=== PATIENT | male | born 1935 | race African-American/Black ===

== ENCOUNTER 2016-05-13 13:03 | Emergency (ER) | payer BC, MEDICARE, OTHER ==
[~2016-05-13] VITALS: Ht 177.8 cm; Wt 90.0 kg
[~2016-05-13 13:03] MED LIST: CALC0.5C4 PO; CLOP75TA27 PO; GLIP2.5T14 PO; LEVO25TA50 PO; NEPH PO; SEVE800T7 PO
[2016-05-13 13:09] VITALS: Ht 177.8 cm; Wt 90.0 kg
--- NOTE | 2016-05-13 15:21 | ERA ---
ER Documentation Chief Complaint Date/Time DATE: 05/13/16 TIME: 15:20 Chief Complaint UPPER BACK PAIN, COUGH CONGESTION DIALYSIS PT UNABLE TO SLEEP X2 DAYS HPI The patient is a 80-year-old male, presenting to the ER because of about back pain due to coughing for the last week. He has been getting over a cold, complains of intermittent dry cough for the last 2 weeks. The back pain is worse with coughing. He denies fever, chills, neck pain, chest pain, dyspnea, abdominal pain, vomiting, dysuria, diarrhea. He does not smoke, drink Past medical history: Chronic kidney disease on peritoneal dialysis, hypothyroidism, diabetes mellitus, anemia Past surgical history: Appendectomy, cardiac angiogram, peritoneal dialysis catheter ROS All systems reviewed and are negative except as per history of present illness. Medications Home Meds Active Scripts Dextromethorphan Hb-Promethazine Hcl (Promethazine DM Syrup) 473 Ml Syrup, 10 ML PO Q6H Y for COUGH, #4 OZ Prov:CAMELIA TOBIAS MD 05/13/16 Hydrocodone/Acetaminophen ([place] 5-325 Tablet) 1 Each Tablet, 1 TAB PO Q6H Y for PAIN, #7 TAB Prov:CAMELIA TOBIAS MD 05/13/16 Azithromycin* (Zithromax*) 250 Mg Tablet, 250 MG PO .JOJO DIRECTED, #6 TAB TAKE 500 MG (2 TABS) THE FIRST DAY THEN 250 MG (1 TAB) DAYS 2-5 Prov:CAMELIA TOBIAS MD 05/13/16 Reported Medications [Magnesium ] No Conflict Check, 250 MG PO DAILY 05/13/16 Aspirin* (Aspirin* EC) 81 Mg Tablet.dr, 81 MG PO DAILY, TAB 05/13/16 Metoprolol Tartrate* (Lopressor*) 25 Mg Tab, 25 MG PO BID, #60 TAB 05/13/16 Docusate Sodium* (Docusate Sodium*) 100 Mg Capsule, 100 MG PO BID, #60 CAP 05/13/16 Ferrous Sulfate* (Ferrous Sulfate*) 325 Mg Tabec, 325 MG PO DAILY, TAB 05/13/16 [place]-3 Fatty Acids/Fish Oil (Fish Oil 1,000 mg Capsule) 1 Each Capsule, 1 EACH PO DAILY, CAP 05/13/16 Levothyroxine Sodium* (Levoxyl*) 25 Mcg Tablet, 25 MCG PO BEFORE BREAKFAST, #30 TAB 07/06/15 Sevelamer Carbonate* (Renvela*) 800 Mg Tablet, 0.8 GM PO WITH MEALS, TAB 07/06/15 Clopidogrel Bisulfate (Clopidogrel) 75 Mg Tablet, 75 MG PO DAILY, #30 TAB 07/06/15 Discontinued Reported Medications Multivit/Ca Carb/B Cmplx/Fa* (Shaina-Sue*) 1 Tab Tab, 1 TAB PO DAILY, TAB 07/06/15 Calcitriol* (Calcitriol*) 0.5 Mcg Capsule, 0.5 MCG PO DAILY, CAP 07/06/15 Glipizide XL* (Glipizide XL*) 2.5 Mg Tab.er.24, 2.5 MG PO EVERY OTHER DAY, TAB 07/06/15 Allergies Allergies: Coded Allergies: penicillin (Verified Allergy, Unknown, 05/13/16) PMhx/Soc History of Surgery: Yes (APPENDICITIS ) Anesthesia Reaction: No Hx Substance Use: No Hx Tobacco Use: No Physical Exam Vitals Vital Signs Date Time Temp Pulse Resp B/P Pulse Ox O2 Delivery O2 Flow Rate FiO2 05/13/16 13:09 97.9 76 20 143/90 99 Physical Exam Const: No acute distress. Head: Atraumatic. Eyes: Normal Conjunctiva. ENT: Normal External Ears, Nose and Mouth. Neck: Full range of motion. No meningismus. Resp: Clear to auscultation bilaterally. Cardio: Regular rate and rhythm, no murmurs. Abd: Soft, non distended, normal bowel sounds, non tender. Skin: No petechiae or rashes. Back: No midline or flank tenderness. Ext: No cyanosis, or edema. Neur: Awake and alert. No focal deficit Psych: Normal Mood and Affect. Result Diagram: 05/13/16 1551 05/13/16 1551 Results 24 hrs Laboratory Tests Test 05/13/16 15:51 Anion Gap 17 Basophils # 0.010^3/ul Basophils % 0.7% Blood Morphology Comment Blood Urea Nitrogen 58mg/dl Calcium Level 6.8mg/dl Carbon Dioxide Level 31mmol/L Chloride Level 97mmol/L Creatinine 10.78mg/dl Eosinophils # 0.210^3/ul Eosinophils % 2.3% Glucose Level 112mg/dl Hematocrit 32.8% Hemoglobin 11.1g/dl Lymphocytes # 1.910^3/ul Lymphocytes % 25.8% Mean Corpuscular Hemoglobin 29.7pg Mean Corpuscular Hemoglobin Concent 33.9g/dl Mean Corpuscular Volume 87.5fl Mean Platelet Volume 8.3fl Monocytes # 0.410^3/ul Monocytes % 5.9% Neutrophils # 4.810^3/ul Neutrophils % 65.3% Nucleated Red Blood Cells # 0.010^3/ul Nucleated Red Blood Cells % 0.0/100WBC Platelet Count 03445^3/UL Potassium Level 3.7mmol/L Red Blood Count 3.7510^6/ul Red Cell Distribution Width 15.6% Sodium Level 141mmol/L White Blood Count 7.410^3/ul Current Medications Medications (Trade) Dose Ordered Sig/Neeta Route PRN Reason Start Time Stop Time Status Last Admin Dose Admin Acetaminophen/ Hydrocodone Bitart ([place] ()) 1 tab ONCE ONCE PO 05/13/16 16:00 05/13/16 16:01 DC 05/13/16 16:00 Ondansetron HCl (Zofran Odt) 4 mg ONCE STAT ODT 05/13/16 15:31 05/13/16 15:34 DC 05/13/16 16:00 Procedures/[place] [address] Radiology Main Line: [phone] DIAGNOSTIC IMAGING REPORT Patient: MELVIN PARK : 1935 Age: 80 Sex: M MR #: [id number] DOS: 05/13/16 1531 Ordering MD: CAMELIA TOBIAS MD Location: E/R Room/Bed: PROCEDURE: XR Chest. CLINICAL INDICATION: Chest pain TECHNIQUE: Single frontal view of the chest was obtained. COMPARISON: 07/06/2015 FINDINGS: The heart is within normal limits. The thoracic aorta is calcified. The lungs are clear. There is no pleural effusion or pneumothorax. Again seen is a cardiac monitoring device overlying the left mid chest. RPTAT: AA IMPRESSION: No acute disease. Calcified aorta consistent with atherosclerotic disease. .Sagar Ponce MD, Date Time Electronically viewed and signed by .Sagar Ponce MD, MD on 05/13/2016 15: 58 .S/ CC: CAMELIA TOBIAS MD MEDICAL MAKING DECISION: The patient is a 80-year-old male, presenting with acute bronchitis, acute upper back pain most likely due to persistent dry cough. He was treated with Quincy 10 million p.o. for pain and Zofran ODT for nausea with good response. The differential diagnoses considered include but are not limited to acute coronary syndrome, acute myocardial infarction, pericarditis, pulmonary embolism, aortic dissection, pneumonia, pleural effusion , pneumothorax, GERD, chest wall pain. Departure Diagnosis: Primary Impression: Back pain Additional Impressions: Bronchitis Anemia Condition: Stable Comments He was discharged with Zithromax, Quincy, promethazine with dextromethorphan I discussed the findings with the patient. I advised the patient to follow-up with the primary physician in about 1-2 days, sooner if needed and return if any concern. The patient's blood pressure was elevated (>120/80) but appears stable without evidence of hypertension emergency or urgency. The patient was counseled about the risks of hypertension and urged to pursue outpatient monitoring and therapy within a week with their primary care physician. CAMELIA TOBIAS MD May 13, 2016 15:21
[2016-05-13] MEDS ORDERED: ONDANSETRON (ODT) 4 MG TAB ODT STA (15:31)
--- NOTE | 2016-05-13 15:58 | RADRPT ---
PROCEDURE: XR Chest. CLINICAL INDICATION: Chest pain TECHNIQUE: Single frontal view of the chest was obtained. COMPARISON: 07/06/2015 FINDINGS: The heart is within normal limits. The thoracic aorta is calcified. The lungs are clear. There is no pleural effusion or pneumothorax. Again seen is a cardiac monitoring device overlying the left mid chest. RPTAT: AA IMPRESSION: No acute disease. Calcified aorta consistent with atherosclerotic disease. .Sagar Ponce MD, MD Date Time Electronically viewed and signed by .Sgaar Ponce MD, on 05/13/2016 15:58 .S/
[2016-05-13] MEDS ORDERED: HYDROCODONE/APAP (10/325) TAB PO ONE (16:00)
[2016-05-13] MEDS ORDERED: FER325 PO (16:22)
[2016-05-13] MEDS ORDERED: OMEG-135 PO (16:22)
[2016-05-13] MEDS ORDERED: METO-448 PO (16:23)
[2016-05-13] MEDS ORDERED: ASPI-664 PO (16:23)
[2016-05-13] MEDS ORDERED: DOCU-159 PO (16:23)
[2016-05-13] MEDS ORDERED: MAGNESIUM PO (16:30)
[2016-05-13 16:33] LABS: POTASSIUM 3.7 mmol/L (3.5-5.1)
[2016-05-13 16:35] LABS: CREATININE 10.78 mg/dl (0.61-1.24)
[2016-05-13 16:36] LABS: CALCIUM 6.8 mg/dl (8.4-10.2)
[2016-05-13 16:42] LABS: BASOPHILS % 0.7 % (0.0-2.0); EOSINOPHILS # 0.2 10^3/ul (0.0-0.5); EOSINOPHILS % 2.3 % (0.0-7.0); HEMATOCRIT 32.8 % (42.0-52.0); HEMOGLOBIN 11.1 g/dl (14.0-18.0); LYMPHOCYTES # 1.9 10^3/ul (0.8-2.9); LYMPHOCYTES % 25.8 % (15.0-51.0); MEAN CORPUSCULAR HEMOGLOBIN 29.7 pg (29.0-33.0); MEAN CORPUSCULAR HGB CONC 33.9 g/dl (32.0-37.0); MEAN CORPUSCULAR VOLUME 87.5 fl (82.0-101.0); MEAN PLATELET VOLUME 8.3 fl (7.4-10.4); MONOCYTE # 0.4 10^3/ul (0.3-0.9); MONOCYTES % 5.9 % (0.0-11.0); NEUTROPHIL # 4.8 10^3/ul (1.6-7.5); NEUTROPHILS % 65.3 % (39.0-77.0); PLATELET COUNT 203 10^3/UL (140-440); RED BLOOD COUNT 3.75 10^6/ul (4.70-6.10); RED CELL DISTRIBUTION WIDTH 15.6 % (11.5-14.5); UNCORRECTED WBC 7.4 10^3/ul (4.8-10.8); WHITE BLOOD COUNT 7.4 10^3/ul (4.8-10.8)
[2016-05-13 16:43] LABS: CONDITION 1; LH ANALYZER COMMENTS 1
[2016-05-13] MEDS ORDERED: HYDR-906 PO (17:10)
[2016-05-13] MEDS ORDERED: AZIT250T94 PO (17:10)
[2016-05-13] MEDS ORDERED: D-ME473S18 PO (17:10)
[2016-05-13 18:07] VITALS: BP 125/79; PULSE 77; RESP 19; TEMP 98.6
== END 2016-05-13 18:07 | disposition home or self-care (01) ==
LOC: E/R 13:03
DX: M54.6 Pain in thoracic spine (principal); J20.9 Acute bronchitis, unspecified; D64.9 Anemia, unspecified; E11.9 Type 2 diabetes mellitus without complications; E03.9 Hypothyroidism, unspecified; N18.9 Chronic kidney disease, unspecified; Z79.82 Long term (current) use of aspirin; Z79.84 Long term (current) use of oral hypoglycemic drugs; Z99.2 Dependence on renal dialysis
CPT/HCPCS: 71010; 80048; 85025; 93005

== ENCOUNTER 2016-12-02 19:29 | Emergency (ER) | payer BC, MEDICARE, OTHER ==
[~2016-12-02] VITALS: Ht 182.9 cm; Wt 89.0 kg
[~2016-12-02 19:29] MED LIST changes: +ASPI-664 PO; +AZIT250T94 PO; -CALC0.5C4 PO; +D-ME473S18 PO; +DOCU-159 PO; +FER325 PO; -GLIP2.5T14 PO; +HYDR-906 PO; +MAGNESIUM PO; +METO-448 PO; -NEPH PO; +OMEG-135 PO
[2016-12-02 19:32] VITALS: Ht 182.9 cm; Wt 89.0 kg
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
[2016-12-02] MEDS ORDERED: traMADol 50 MG TAB PO ONE (22:00)
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
[2016-12-02 23:14] LABS: BASOPHIL # 0.1 10^3/ul (0.0-0.1); BASOPHILS % 0.7 % (0.0-2.0); EOSINOPHILS # 0.2 10^3/ul (0.0-0.5); EOSINOPHILS % 3.3 % (0.0-7.0); HEMATOCRIT 32.9 % (42.0-52.0); HEMOGLOBIN 10.9 g/dl (14.0-18.0); LYMPHOCYTES # 2.3 10^3/ul (0.8-2.9); LYMPHOCYTES % 32.4 % (15.0-51.0); MEAN CORPUSCULAR HEMOGLOBIN 30.4 pg (29.0-33.0); MEAN CORPUSCULAR HGB CONC 33.1 g/dl (32.0-37.0); MEAN CORPUSCULAR VOLUME 91.6 fl (82.0-101.0); MEAN PLATELET VOLUME 10.2 fl (7.4-10.4); MONOCYTE # 0.5 10^3/ul (0.3-0.9); MONOCYTES % 7.6 % (0.0-11.0); NEUTROPHIL # 3.9 10^3/ul (1.6-7.5); NEUTROPHILS % 55.7 % (39.0-77.0); PLATELET COUNT 171 10^3/UL (140-415); RED BLOOD COUNT 3.59 10^6/ul (4.70-6.10); WHITE BLOOD COUNT 6.9 10^3/ul (4.8-10.8)
[2016-12-02 23:28] LABS: POTASSIUM 3.6 mmol/L (3.5-5.1); TOTAL PROTEIN 7.5 g/dl (6.1-8.1)
[2016-12-02 23:29] LABS: ALBUMIN 3.7 g/dl (3.3-4.9); ALBUMIN/GLOBULIN RATIO 0.97
[2016-12-02 23:41] LABS: INR 0.95; PROTIME 12.7 Sec (12.2-14.2)
[2016-12-02 23:48] LABS: CREATININE 14.51 mg/dl (0.61-1.24)
[2016-12-03] MEDS ORDERED: ONDANSETRON 4 MG INJ IV STA ×2 (00:07→00:09)
[2016-12-03] MEDS ORDERED: morphine 4 MG/ML VIAL IV STA ×2 (00:07→00:09)
[2016-12-03] MEDS ORDERED: IOHEXOL 300MG/ML 150 ML BTL ONE (00:21)
[2016-12-03] MEDS ORDERED: SOD CHLORIDE 0.9% 100 ML ONE (00:21)
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
--- NOTE | 2016-12-03 01:58 | EN ---
Date/Time of Note Date/Time of Note DATE: 12/03/16 TIME: 01:58 ER Progress Note Patient was supported here from ER 2. Further workup shows pneumoperitoneum on CT scan. Discussed with radiologist. Likely secondary to peritoneal dialysis patient performs nightly. At this point patient has serial negative abdominal exams and no signs of deterioration despite prolonged observation. Patient will be discharged home. Follow-up in 8 hours. Follow-up sooner for any return of abdominal pain. BETSY ORTEGA Dec 03, 2016 01:58
[2016-12-03] MEDS ORDERED: HYDR-902 PO (01:59)
[2016-12-03 02:12] VITALS: BP 104/70; PULSE 78; RESP 18
== END 2016-12-03 02:19 | disposition home or self-care (01) ==
LOC: E/R 19:29
DX: K63.1 Perforation of intestine (nontraumatic) (principal); S20.211A Contusion of right front wall of thorax, initial encounter; S70.02XA Contusion of left hip, initial encounter; S29.9XXA Unspecified injury of thorax, initial encounter; V89.2XXA Person injured in unspecified motor-vehicle accident, traffic, initial encounter; Z79.82 Long term (current) use of aspirin
CPT/HCPCS: 36415; 71020; 71100; 72125; 72128; 73510; 74177; 80053; 83605; 85025; 85610; 96374; 96375; 99285; J2270; J2405; Q9967

== ENCOUNTER 2017-01-26 14:45 | Emergency (ER) | payer OTHER ==
[~2017-01-26] VITALS: Ht 177.8 cm; Wt 175.0 kg
[~2017-01-26 14:45] MED LIST changes: -D-ME473S18 PO; +HYDR-902 PO; -HYDR-906 PO
[2017-01-26] MEDS ORDERED: SOD CHLORIDE 0.9% 1,000 ML IV STA (14:48)
[2017-01-26 14:50] VITALS: Ht 177.8 cm; Wt 175.0 kg
[2017-01-26 15:13] LABS: BASOPHILS % 0.5 % (0.0-2.0); EOSINOPHILS # 0.2 10^3/ul (0.0-0.5); EOSINOPHILS % 3.1 % (0.0-7.0); HEMATOCRIT 37.1 % (42.0-52.0); HEMOGLOBIN 11.7 g/dl (14.0-18.0); LYMPHOCYTES # 1.8 10^3/ul (0.8-2.9); LYMPHOCYTES % 31.3 % (15.0-51.0); MEAN CORPUSCULAR HEMOGLOBIN 28.8 pg (29.0-33.0); MEAN CORPUSCULAR HGB CONC 31.5 g/dl (32.0-37.0); MEAN CORPUSCULAR VOLUME 91.4 fl (82.0-101.0); MEAN PLATELET VOLUME 10.3 fl (7.4-10.4); MONOCYTE # 0.4 10^3/ul (0.3-0.9); MONOCYTES % 7.7 % (0.0-11.0); NEUTROPHIL # 3.3 10^3/ul (1.6-7.5); NEUTROPHILS % 57.1 % (39.0-77.0); PLATELET COUNT 180 10^3/UL (140-415); RED BLOOD COUNT 4.06 10^6/ul (4.70-6.10); RED CELL DISTRIBUTION WIDTH 14.8 % (11.5-14.5); WHITE BLOOD COUNT 5.8 10^3/ul (4.8-10.8)
[2017-01-26 15:40] LABS: TROPONIN-I 0.053 ng/ml (0.00-0.12)
[2017-01-26 15:41] LABS: CREATININE 12.49 mg/dl (0.61-1.24)
[2017-01-26 15:51] LABS: POTASSIUM 2.8 mmol/L (3.5-5.1)
[2017-01-26] MEDS ORDERED: POTASSIUM CHLORIDE (SR) 20 MEQ TAB PO STA (16:42)
[2017-01-26] MEDS ORDERED: POTA10TA37 PO (16:45)
--- NOTE | 2017-01-26 16:50 | ERD ---
ER Documentation Chief Complaint Date/Time DATE: 01/26/17 TIME: 16:45 Chief Complaint weakness after dialysis HPI This is 81-year-old male who does peritoneal dialysis. The patient says he unhooked himself from dialysis this morning and got dressed and went to [facility] for breakfast. He said when he was walking from the car to [facility] he felt a little dizzy and it progressively got worse where he felt just generalized weakness. He said he had a lean against the counter to hold himself up and that he gently let himself onto the floor. There is no syncope no chest pain no shortness of breath no abdominal pain. The patient states he has had this on a few episodes before. EMS arrived into the patient's blood pressure was low in the upper 90s systolic. The patient says that he has had some blood pressure issues after dialysis in the past. He says he feels much better and wants to go home now. I did convince him to stay and check a few labs. He also states she has had low potassium in the past ROS All systems reviewed and are negative except as per history of present illness. Medications Home Meds Active Scripts Potassium Chloride* (K-Dur*) 10 Meq Tab.prt.sr, 20 MEQ PO DAILY for 5 Days, #10 TAB Prov:ESTEE BONILLA DO 01/26/17 Hydrocodone/Acetaminophen ([place] 10-325 Tablet) 1 Each Tablet, 1 TAB PO Q6H Y for PAIN, #20 TAB Prov:BETSY ORTEGA 12/03/16 Azithromycin* (Zithromax*) 250 Mg Tablet, 250 MG PO .JOJO DIRECTED, #6 TAB TAKE 500 MG (2 TABS) THE FIRST DAY THEN 250 MG (1 TAB) DAYS 2-5 Prov:CAMELIA TOBIAS MD 05/13/16 Reported Medications [Magnesium ] No Conflict Check, 250 MG PO DAILY 05/13/16 Aspirin* (Aspirin* EC) 81 Mg Tablet.dr, 81 MG PO DAILY, TAB 05/13/16 Metoprolol Tartrate* (Lopressor*) 25 Mg Tab, 25 MG PO BID, #60 TAB 05/13/16 Docusate Sodium* (Docusate Sodium*) 100 Mg Capsule, 100 MG PO BID, #60 CAP 05/13/16 Ferrous Sulfate* (Ferrous Sulfate*) 325 Mg Tabec, 325 MG PO DAILY, TAB 05/13/16 [place]-3 Fatty Acids/Fish Oil (Fish Oil 1,000 mg Capsule) 1 Each Capsule, 1 EACH PO DAILY, CAP 05/13/16 Levothyroxine Sodium* (Levoxyl*) 25 Mcg Tablet, 25 MCG PO BEFORE BREAKFAST, #30 TAB 07/06/15 Sevelamer Carbonate* (Renvela*) 800 Mg Tablet, 0.8 GM PO WITH MEALS, TAB 07/06/15 Clopidogrel Bisulfate (Clopidogrel) 75 Mg Tablet, 75 MG PO DAILY, #30 TAB 07/06/15 Allergies Allergies: Coded Allergies: penicillin (Verified Allergy, Unknown, 05/13/16) PMhx/Soc History of Surgery: Yes (APPENDICITIS) Anesthesia Reaction: No Hx Miscellaneous Medical Probl: Yes (PERITONEAL DIALYSIS) Hx Alcohol Use: No Hx Substance Use: No Hx Tobacco Use: No Smoking Status: Unknown if ever smoked FmHx Family History: No coronary disease Physical Exam Vitals Vital Signs Date Time Temp Pulse Resp B/P Pulse Ox O2 Delivery O2 Flow Rate FiO2 01/26/17 14:50 98.0 78 18 120/71 99 01/26/17 14:50 97.5 81 18 112/70 99 Physical Exam Const: Well-developed, well-nourished Head: Atraumatic, normocephalic Eyes: Normal Conjunctiva, PERRLA, EOMI, normal sclera, no nystagmus ENT: Normal External Ears, Nose and Mouth, moist mucus membranes. Neck: Full range of motion. No meningismus, no lymphadenopathy. Resp: Clear to auscultation bilaterally, no wheezing, rhonchi, rales Cardio: Regular rate and rhythm, no murmurs, S1 S2 present Abd: Soft, non tender x 4, non distended. Normal bowel sounds, no guarding or rebound, no pulsitile abdominal masses or bruits Skin: No petechiae or rashes, no ecchymosis , no maculopapular rash Back: No midline or flank tenderness Ext: No cyanosis, or edema, FROM x 4, normal inspection, neurovascularly intact x 4 Neur: Awake and alert, STR 5/5 x 4, sensation intact x 4, no focal findings, cerebellum intact Psych: Normal Mood and Affect Result Diagram: 01/26/17 1450 01/26/17 1450 Results 24 hrs Laboratory Tests Test 01/26/17 14:50 White Blood Count 5.810^3/ul Red Blood Count 4.0610^6/ul Hemoglobin 11.7g/dl Hematocrit 37.1% Mean Corpuscular Volume 91.4fl Mean Corpuscular Hemoglobin 28.8pg Mean Corpuscular Hemoglobin Concent 31.5g/dl Red Cell Distribution Width 14.8% Platelet Count 94684^3/UL Mean Platelet Volume 10.3fl Neutrophils % 57.1% Lymphocytes % 31.3% Monocytes % 7.7% Eosinophils % 3.1% Basophils % 0.5% Nucleated Red Blood Cells % 0.0/100WBC Neutrophils # 3.310^3/ul Lymphocytes # 1.810^3/ul Monocytes # 0.410^3/ul Eosinophils # 0.210^3/ul Basophils # 0.010^3/ul Nucleated Red Blood Cells # 0.010^3/ul Sodium Level 137mmol/L Potassium Level 2.8mmol/L Chloride Level 98mmol/L Carbon Dioxide Level 30mmol/L Anion Gap 12 Blood Urea Nitrogen 42mg/dl Creatinine 12.49mg/dl Glucose Level 140mg/dl Calcium Level 8.0mg/dl Troponin I 0.053ng/ml Current Medications Medications (Trade) Dose Ordered Sig/Neeta Route PRN Reason Start Time Stop Time Status Last Admin Dose Admin Sodium Chloride (NS) 1,000 ml @ 1,000 mls/hr Q1H STAT IV 01/26/17 14:48 01/26/17 15:47 DC 01/26/17 14:55 Potassium Chloride (Klor-Con 20) 40 meq ONCE STAT PO 01/26/17 16:42 01/26/17 16:43 DC Procedures/MDM EKG: Rate/Rhythm: Normal sinus rhythm with a first-degree AV block QRS, ST, QT: NORMAL MO, QRS, QT] Impression: [abNORMAL EKG] She received IV fluids. The patient's blood pressure is 110 systolic. The patient was walked in the ER and had no problems walking around for the dizziness completely asymptomatic. He received 40 mEq of K-Dur. I will give him some potassium to go home with. His potassium should reregulate during dialysis. I feel like his blood pressure was dropped after dialysis related complication however is now resolved. He is feeling better. We will discharge him home with follow-up with his primary Departure Diagnosis: Primary Impression: Hypotension Hypotension type: hemodialysis-associated hypotension Qualified Code: I95.3 - Hemodialysis-associated hypotension Additional Impressions: Acute weakness Hypokalemia Condition: Stable Patient Instructions: Hypokalemia, Hypotension, All Causes, Weakness, Unk Cause ESTEE BONILLA DO Jan 26, 2017 16:50
== END 2017-01-26 17:03 | disposition home or self-care (01) ==
LOC: E/R 14:45
DX: I95.3 Hypotension of hemodialysis (principal); E87.6 Hypokalemia; Z79.82 Long term (current) use of aspirin
CPT/HCPCS: 36415; 80048; 84484; 85025; 93005; 99284; J7030

== ENCOUNTER → 2018-10-16 | Outpatient (CLI) | payer OTHER ==
[~2018-10-16] MED LIST changes: -ASPI-664 PO; +ASPI-817 PO; +AZIT250T PO; -AZIT250T94 PO; +HYDR-3980 PO; -HYDR-902 PO; +POTA10TA37 PO
== END | disposition home or self-care (01) ==
LOC: RAD 14:05
PROVIDERS: ATTEND Internal Medicine
DX: R93.5 Abnormal findings on diagnostic imaging of other abdominal regions, including retroperitoneum (principal)
CPT/HCPCS: 74018

== ENCOUNTER 2018-10-29 18:56 | Emergency (ER) | payer OTHER ==
[~2018-10-29] VITALS: Ht 180.3 cm; Wt 80.0 kg
[2018-10-29 18:59] VITALS: Ht 180.3 cm; Wt 80.0 kg
[2018-10-29] MEDS ORDERED: SOD CHLORIDE 0.9% 500 ML IV STA (19:34)
--- NOTE | 2018-10-29 20:12 | ERD ---
ER Documentation Chief Complaint Chief Complaint bib ra from home for weakness, post peritoneal dialysis HPI 82-year-old male with a history of ESRD on peritoneal dialysis presenting by ambulance from home for generalized weakness with nausea and vomiting that started today. He states that he did 10 hours of overnight peritoneal dialysis. When he woke up he felt well. However he soon started to feel flushed and weak with associated nausea and had multiple episodes of nonbloody and nonbilious vomiting. He denies any associated chest pain, shortness of breath, diarrhea, abdominal pain. Patient is concerned as he may have been eating with some contaminated utensils recently. 1 week ago he found a bottle of an unidentified liquid in his cabinet. He was not sure where this liquid came from so he dumped it down the sink and states that it was very sticky and most of it did not wash away. He has been washing his dishes and utensils in the setting where he notices the residue of this unknown substance. He is concerned that maybe he got poison from the substance. ROS All systems reviewed and are negative except as per history of present illness. Medications Home Meds Active Scripts Potassium Chloride* (K-Dur*) 10 Meq Tab.prt.sr, 20 MEQ PO DAILY for 5 Days, #10 TAB Prov:ESTEE BONILLA DO 01/26/17 Hydrocodone/Acetaminophen ([place] 10-325 Tablet) 1 Each Tablet, 1 TAB PO Q6H PRN for PAIN, #20 TAB Prov:BETSY ORTEGA 12/03/16 Azithromycin* (Zithromax*) 250 Mg Tablet, 250 MG PO .SENDYCK DIRECTED, #6 TAB TAKE 500 MG (2 TABS) THE FIRST DAY THEN 250 MG (1 TAB) DAYS 2-5 Prov:CAMELIA TOBIAS MD 05/13/16 Reported Medications [Magnesium ] No Conflict Check, 250 MG PO DAILY 05/13/16 Aspirin* (Aspirin* EC) 81 Mg Tablet.dr, 81 MG PO DAILY, TAB 05/13/16 Metoprolol Tartrate* (Lopressor*) 25 Mg Tab, 25 MG PO BID, #60 TAB 05/13/16 Docusate Sodium* (Docusate Sodium*) 100 Mg Capsule, 100 MG PO BID, #60 CAP 05/13/16 Ferrous Sulfate* (Ferrous Sulfate*) 325 Mg Tabec, 325 MG PO DAILY, TAB 05/13/16 [place]-3 Fatty Acids/Fish Oil (Fish Oil 1,000 mg Capsule) 1 Each Capsule, 1 EACH PO DAILY, CAP 05/13/16 Levothyroxine Sodium* (Levoxyl*) 25 Mcg Tablet, 25 MCG PO BEFORE BREAKFAST, #30 TAB 07/06/15 Sevelamer Carbonate* (Renvela*) 800 Mg Tablet, 0.8 GM PO WITH MEALS, TAB 07/06/15 Clopidogrel Bisulfate (Clopidogrel) 75 Mg Tablet, 75 MG PO DAILY, #30 TAB 07/06/15 Allergies Allergies: Coded Allergies: penicillin (Verified Allergy, Unknown, 05/13/16) PMhx/Soc History of Surgery: Yes (Appendectomy, cardiac recorder implanted in left chest) Anesthesia Reaction: No Hx Miscellaneous Medical Probl: Yes (ESRD on peritoneal dialysis) Hx Alcohol Use: No Hx Substance Use: No Hx Tobacco Use: No Smoking Status: Never smoker FmHx Family History: No diabetes Physical Exam Vitals Vital Signs Date Temp Pulse Resp B/P (MAP) Pulse Ox O2 O2 Flow FiO2 Time Delivery Rate 10/30/18 98.0 100 20 148/86 100 Room Air 00:09 (106) 10/29/18 98.6 100 19 147/80 100 Room Air 18:59 (102) 10/29/18 98.6 90 19 145/89 100 18:59 (107) Physical Exam Const: No acute distress, well-appearing, nontoxic Head: Atraumatic Eyes: Normal Conjunctiva ENT: Normal External Ears, Nose and Mouth. Neck: Full range of motion. No meningismus. Resp: Clear to auscultation bilaterally Cardio: Regular rate and rhythm, no murmurs. 2+ distal pulses in all 4 extremities Abd: Peritoneal dialysis catheter site appears clean, dry, intact. Abdomen is soft, non tender, non distended. Normal bowel sounds Skin: No petechiae or rashes Back: No midline or flank tenderness Ext: No cyanosis, or edema Neur: Awake and alert, normal speech, no facial asymmetry, moving all extremities spontaneously. Strength grossly intact. Psych: Normal Mood and Affect Result Diagram: 10/29/18200310/29/182003 Results 24 hrs Laboratory Tests Test 10/29/18 20:04 White Blood Count 6.7 10^3/ul Red Blood Count 3.79 10^6/ul Hemoglobin 11.4 g/dl Hematocrit 32.8 % Mean Corpuscular Volume 86.5 fl Mean Corpuscular Hemoglobin 30.1 pg Mean Corpuscular Hemoglobin Concent 34.8 g/dl Red Cell Distribution Width 14.3 % Platelet Count 182 10^3/UL Mean Platelet Volume 10.4 fl Immature Granulocytes % 0.400 % Neutrophils % 77.2 % Lymphocytes % 15.7 % Monocytes % 4.3 % Eosinophils % 1.8 % Basophils % 0.6 % Nucleated Red Blood Cells % 0.0 /100WBC Immature Granulocytes # 0.030 10^3/ul Neutrophils # 5.2 10^3/ul Lymphocytes # 1.1 10^3/ul Monocytes # 0.3 10^3/ul Eosinophils # 0.1 10^3/ul Basophils # 0.0 10^3/ul Nucleated Red Blood Cells # 0.0 10^3/ul Sodium Level 137 mmol/L Potassium Level 3.5 mmol/L Chloride Level 98 mmol/L Carbon Dioxide Level 27 mmol/L Anion Gap 12 Blood Urea Nitrogen 50 mg/dl Creatinine 13.67 mg/dl Est Glomerular Filtrat Rate mL/min mL/min Glucose Level 115 mg/dl Calcium Level 8.1 mg/dl Total Bilirubin 0.1 mg/dl Direct Bilirubin 0.00 mg/dl Indirect Bilirubin 0.1 mg/dl Aspartate Amino Transf (AST/SGOT) 31 IU/L Alanine Aminotransferase (ALT/SGPT) 16 IU/L Alkaline Phosphatase 65 IU/L Troponin I 0.039 ng/ml Total Protein 7.3 g/dl Albumin 3.4 g/dl Globulin 3.90 g/dl Albumin/Globulin Ratio 0.87 Current Medications Medications Dose Sig/Neeta Start Time Status Last (Trade) Ordered Route PRN Stop Time Admin Dose Reason Admin Sodium 500 ml @ Q1H STAT 10/29/18 DC 10/29/18 Chloride 500 mls/hr IV 19:34 10/29/18 20:08 20:33 Procedures/MDM EMERGENT LABS AND DIAGNOSTIC STUDIES: Lab Results above were reviewed and interpreted by me. CBC: no anemia or evidence of infection CMP: No evidence of clinically significant electrolyte abnormality, acidosis, renal failure, hypoglycemia, liver disease, or biliary obstruction Troponin within normal limits, not indicative of cardiac ischemia 12-lead EKG was interpreted by Roseanna Viramontes MD: Sinus tachycardia with ventricular rate of 109 beats per minute Normal axis Normal intervals No acute ST or T wave changes suggestive of acute ischemia or STEMI. Initial Nursing notes reviewed. Previous Medical Records requested via the Electronic Health Record. EMERGENCY DEPARTMENT COURSE / MEDICAL DECISION MAKING: Patient presented after an episode of feeling weak and vomiting. However he has no focal deficits on exam and is afebrile. Vitals were notable for mild tachycardia. For this reason IV fluids were started. Patient's exam is unremarkable at this time. Basic labs were done showing evidence of known ESRD, but no significant electrolyte abnormalities or other significant findings. I have a low suspicion for any type of poisoning in this patient. The cause of his symptoms are unclear at this time. However the patient has remained stable and asymptomatic while here in the ER. Upon reevaluation, he is feeling much better and would like to go home. I feel like this is a reasonable plan, however strict return precautions were given. Patient advised to follow-up with his primary care doctor tomorrow. Family and patient agreeable with discharge plan. Patient discharged in stable condition. Patient's blood pressure was elevated (>120/80) but appears stable without evidence of hypertensive emergency or urgency. The patient was counseled about the risks of hypertension and urged to pursue outpatient monitoring and therapy within a week with their primary care physician. Departure Diagnosis: Primary Impression: Acute weakness Additional Impressions: Nausea and vomiting Vomiting type: unspecified Vomiting Intractability: non-intractable Qualified Codes: R11.2 - Nausea with vomiting, unspecified ESRD on peritoneal dialysis Condition: Stable EKJACINTO ARANDA MD Oct 29, 2018 20:12
[2018-10-30 00:09] VITALS: BP 148/86; PULSE 100; RESP 20
== END 2018-10-30 00:12 | disposition home or self-care (01) ==
LOC: E/R 18:56
DX: R53.1 Weakness (principal); R11.2 Nausea with vomiting, unspecified; N18.6 End stage renal disease; Z99.2 Dependence on renal dialysis; Z79.82 Long term (current) use of aspirin; Z79.02 Long term (current) use of antithrombotics/antiplatelets
CPT/HCPCS: 36415; 80053; 84484; 85025; 93005; 96360; 99284; J7040